=== PATIENT | female | born 1975 | race Caucasian/White ===

== ENCOUNTER → 2016-08-04 | Outpatient (CLI) | payer OTHER ==
--- NOTE | 2016-08-04 13:22 | WOMENS IMAGING REPORT ---
EXAM DESCRIPTION: BILAT SCREENING MAMMO W/CAD COMPLETED DATE/TIME: 08/04/2016 7:25 am REASON FOR STUDY: Z12.31, ROUTINE SCREENING MAMMO Z12.31 ENCNTR SCREEN MAMMOGRAM FOR MALIGNANT NEOP LASM OF JOSE COMPARISON: Baseline study TECHNIQUE: Standard craniocaudal and mediolateral oblique views of each breast recorded using [employer] acquisition. LIMITATIONS: None. FINDINGS: Findings present which are benign by mammographic criteria. No suspicious masses, calcifi cations or architectural distortion. Pertinent benign findings: Bilateral benign skin and breast parenchymal calcifications. Read with the assistance of CAD. .[facility] - R2 Cenova Version 1.3 .[facility] - R2 Cenova Version 1.3 .[facility] - R2 Cenova Version 2.4 .[facility] [place] - R2 Cenova Version 2.4 .[facility] - R2 [employer] Version 9.2 Benign mammographic findings may include one or more of the following: Smooth masses, popcorn/rim/co arse calcifications, asymmetries, post-procedure changes, and lesions with long-standing stability. IMPRESSION: BENIGN MAMMOGRAPHIC FINDINGS. BIRADS 2 BREAST DENSITY: c. The breasts are heterogeneously dense, which may obscure small masses. BIRAD: 2 BENIGN FINDING(S) RECOMMENDATION: ROUTINE SCREENING Please continue yearly screening, consider bilateral screening tomosynthesis given heterogeneously de nse tissue. COMMENT: The patient has been notified of the results by letter per MQSA requirements. Additional no tification policies are in place for contacting patient with suspicious or incomplete findings. Quality ID #[id number]: The [employer] recommends an annual screening mammogram for women aged 40 years or over. This facility utilizes a reminder system to ensure that all patients receive reminder letters, and/or direct phone calls for appointments. This includes reminders for routine scr eening mammograms, diagnostic mammograms, or other Breast Imaging Interventions when appropriate. Th is patient will be placed in the appropriate reminder system. The [employer] (A[employer]) has developed recommendations for screening MRI of the breast s in certain patient populations, to be used in conjunction with mammography. Breast MRI surveillanc e may be appropriate for women with more than 20% lifetime risk of developing breast cancer as deter mined by genetic testing, significant family history of the disease, or history of mantle radiation f or Hodgkins Disease. ACR Practice Guidelines 2008. TECHNICAL DOCUMENTATION: FINDING NUMBER: (1) ASSESSMENT: (1) JOB ID: [id number] [employer]- All Rights Reserved
== END ==
LOC: RAD 07:59
PROVIDERS: ATTEND Physician Assistant
DX: Z12.31 Encounter for screening mammogram for malignant neoplasm of breast (principal)
CPT/HCPCS: 77067; G0202

== ENCOUNTER 2017-05-22 13:10 | Emergency (ER) | payer OTHER ==
[2017-05-22] MEDS ORDERED: LIDOCAINE 1% INJ-PF (10 MG/ML) 30 ML SDV INJ ONE (13:59)
[2017-05-22] MEDS ORDERED: OXYCODONE HCL IR 5 MG TABLET PO ONE (14:03)
--- NOTE | 2017-05-22 14:11 | ER Document Report ---
HPI - HPI Pain Level: 5 Notes: Patient is a 42-year-old female with a history of type 2 diabetes who presents to the ED complaining of an abscess to her left groin 1-1/2 days. Patient has not noticed any discharge, but has noticed a small licea, redness, swelling , and pain. Patient states that she has had abscesses in the past without any history of MRSA. Patient does shave in her bikini area. She has otherwise been eating and drinking without any difficulties. She is urinating normally and having normal bowel movements. Denies any other vaginal discharge, odor, or bleeding. Patient states an allergy to penicillins which causes blood pressure issues and a rash. Denies any headache, fever, neck pain, URI, sore throat, chest pain, palpitations, syncope, cough, shortness of breath, wheeze, dyspnea, abdominal pain, nausea/vomiting/diarrhea, urinary retention, dysuria, hematuria, loss of control of bowel or bladder, numbness/tingling, saddle anesthesia, muscle paralysis/weakness, or rash. - ROS Systems Reviewed and Negative: Yes All other systems reviewed and negative - CONSTITUTIONAL Constitutional: DENIES: Fever, Chills - NEURO Neurology: REPORTS: Headache - REPRODUCTIVE Reproductive: DENIES: : Past Medical History - Social History Smoking Status: Never Smoker Family History: Other - ? DVT in mother Patient has suicidal ideation: No Patient has homicidal ideation: No Pulmonary Medical History: Reports: Hx Asthma Denies: Hx Tuberculosis Neurological Medical History: Denies: Hx Seizures Endocrine Medical History: Reports: Hx Diabetes Mellitus Type 1, Hx Diabetes Mellitus Type 2 Renal/ Medical History: Reports: Hx Ovarian Cysts. Denies: Hx Peritoneal Dialysis Past Surgical History: Reports: Hx Gynecologic Surgery. Denies: Hx Pacemaker - Immunizations Hx Diphtheria, Pertussis, Tetanus Vaccination: No Vertical Provider Document - CONSTITUTIONAL Agree With Documented VS: Yes Notes: PHYSICAL EXAMINATION: GENERAL: Well-appearing, well-nourished and in no acute distress. LUNGS: Breath sounds clear to auscultation bilaterally and equal. No wheezes rales or rhonchi. HEART: Regular rate and rhythm without murmurs, rubs, gallops. ABDOMEN: Soft, nontender, nondistended abdomen. No guarding, no rebound. No masses appreciated. Normal bowel sounds present. No CVA tenderness bilaterally. Groin, Left: + erythema, induration, abscess, and tenderness. Abscess approx 1.5-2cm diameter with induration 4cm diameter. No discharge or streaks. Musculoskeletal: FROM to passive/active. Strength 5+/5. Extremities: No cyanosis, clubbing, or edema b/l. Peripheral pulses 2+. Capillary refill less than 3 seconds. NEUROLOGICAL: Normal speech, normal gait. Normal sensory, motor exams PSYCH: Normal mood, normal affect. SKIN: see above. Warm, Dry, normal turgor, no rashes or lesions noted. - INFECTION CONTROL TRAVEL OUTSIDE OF THE [place] IN LAST 30 DAYS: No Course - Re-evaluation Re-evalutation: 05/22/17 15:08 Patient is an afebrile, well-hydrated, 42-year-old female who presents to the ED with an abscess to her left groin, most likely secondary to shaving in the area. Vitals are acceptable. PE is otherwise unremarkable. Incision and drainage was performed successfully without any complications and packing was placed. Wound dressing was placed and wound instructions reviewed. Low suspicion for any sepsis, meningitis, necrotizing fasciitis, erythema migrans, or other systemic emergent condition at this time. Patient to monitor symptoms closely and seek medical attention with any acute changes. I will be sending her home with a prescription for clindamycin to take as directed. Conservative measures otherwise for symptoms. Recheck with your PCM in 2-3 days. Return to the ED with any worsening/concerning symptoms otherwise as reviewed discharge. Patient is in agreement. - Vital Signs Vital signs: Temp Pulse Resp BP Pulse Ox 98.2 F 97 20 141/87 H 95 05/22/17 13:15 05/22/17 13:15 05/22/17 13:15 05/22/17 13:15 05/22/17 13:15 Procedures - Incision and Drainage Left Groin Time completed: 15:05 - pt tolerated proc well, no complications, wound cx obtained Type: Simple Anesthetic type: 1% Lidocaine mL's of anesthetic: 10 Blade size: 11 I&D procedure: Iodoform packing placed, Sterile dressing applied, Other - chlorhexadine Incision Method: Incision made by scalpel Amount/type of drainage: moderate purulent. Discharge - Discharge Clinical Impression: Abscess or cellulitis of groin Condition: Stable Disposition: HOME, SELF-CARE Instructions: Abscess ([facility]), Clindamycin ([facility]), Post Incision and Drainage Additional Instructions: Do not shower or bathe for 24 hours. After 24 hours she may shower but no submersion of the wound under water. Keep the original dressing on the wound for 24 hours unless the drainage soaks through. Change the dressing daily thereafter and use a small amount of triple antibiotic ointment over the open wound. Return to the ED and/or your PCM in 2-3 days for recheck and continue direction for wound packing. Monitor for any signs of worsening pain or redness , streaks, and/or fever. Return to the ED if noticing any of the above symptoms or as needed. Take medications as directed. Prescriptions: Clindamycin HCl [Cleocin 300 mg Capsule] 300 mg PO TID #30 capsule Forms: Elevated Blood Pressure Referrals: LAKISHA CASTILLO MD [ACTIVE STAFF] - Follow up as needed
[2017-05-22] MEDS ORDERED: HYDROCODONE/ACETAMINOPHEN 5-325 MG (6 TAB/ER DISP) PO PRN (15:14)
[2017-05-22 16:09] VITALS: BP 116/70
== END 2017-05-22 16:09 | disposition home or self-care (01) ==
LOC: ER 13:10
PROC: 0H97XZZ Drainage of Abdomen Skin, External Approach (ICD-10-PCS; principal; 2017-05-22)
DX: L02.214 Cutaneous abscess of groin (principal); R51 Headache; E11.9 Type 2 diabetes mellitus without complications
CPT/HCPCS: 99283; 87070; 87205; 87075; 87077; 10060; A6266